=== PATIENT | female | born 1995 | race Caucasian/White ===

== ENCOUNTER 2017-02-14 13:11 | Emergency (ER) | payer BC, OTHER ==
[2017-02-14 13:43] LABS: Urine Bilirubin 1 mg/dl (NEGATIVE); Urine Blood 250 /ul (NEGATIVE); Urine Ketone Negative (NEGATIVE); Urine Nitrite Negative (NEGATIVE); Urine Protein 15 mg/dL (NEGATIVE); Urine Urobilinogen Normal (NORMAL); Urine pH 6.5 pH (5.0-7.0)
[2017-02-14 13:52] LABS: Urine Appearance Slightly Cloudy; Urine Bacteria 3+; Urine Color Yellow; Urine RBC 0-5 /hpf (0-5)
--- NOTE | 2017-02-14 13:52 | ERNOTE ---
ER Female HPI Stated Complaint: LOWER ABD TO BACK PAIN Time Seen by Provider: 02/14/17 13:26 Source: patient Exam Limitations: no limitations Immunizations: IMMUNIZATION HX Immunizations Up to Date Yes History of Influenza Vaccine No Hx Pneumococcal Vaccination More Information Required Allergies/Adverse Reactions: Allergies No Known Allergies Allergy (Verified 02/14/17 13:21) Home Medications: HOME MEDICATIONS Cetirizine HCl [Zyrtec] 10 mg PO DAILY 07/08/16 [Last Taken 08/01/16] Vit#96/Ferrous Fum/FA [ S] 1 tab PO DAILY 07/08/16 [Last Taken 08/02/16] ALPRAZolam [Xanax] 0.5 mg PO BID PRN 02/14/17 [Last Taken Unknown] Ibuprofen [Motrin] 600 mg PO TID PRN #21 tablet 02/14/17 [Last Taken Unknown] Sulfamethoxazole/Trimethoprim [Bactrim Ds] 1 tab PO BID #14 tablet 02/14/17 [ Last Taken Unknown] Zinc 50 mg PO DAILY 02/14/17 [Last Taken Unknown] - History of Present Illness Narrative: Patient presents to the emergency room for lower abdominal pain for 3 days denies any nausea or vomiting she states that she is not having pain right now. But she has had it yesterday and today before intermittently denies any nausea or vomiting states she cannot be because she is on control pills. Denies any trauma. - Patient's Past Medical History Patient History - Medical: Anxiety, Depression, Seizures Patient History - Cardiac/Respiratory: No pertinent hx Patient History - Cancer: No Hx of Cancer Patient History - Surgical Procedures: No surgical history - Social History Smoking Status: Current every day smoker Have you smoked in the past 12 months: Yes - Immunizations Immunizations Up to Date: Yes Hx Pneumococcal Vaccination: More Information Required to Determine History of Influenza Vaccine: No Physical Exam - Physical Exam General Appearance: Present: wd/wn, alert, no apparent distress Respiratory: Present: no respiratory distress, normal breath sounds, no accessory muscle use, chest nontender, lungs clear Cardiovascular/Chest: Present: regular rate, rhythm, no murmur, normal peripheral pulses Gastrointestinal/Abdominal: Present: normal bowel sounds, nontender, nondistended, soft, no organomegaly - this is a completely benign abdominal exam. Deep palpation patient is slightly tender in the suprapubic region but no rebound and completely benign abdominal exam. ED Progress - Results and Orders Patient's Lab Results:: I have reviewed the patient's lab results. - patient's urine results are positive for benzodiazepines and opiates and marijuana. - Vital Signs Patient's Vital Signs:: I have reviewed the patient's vital signs. Vital Signs: Vital Signs 02/14/17 13:18 Temperature 36.7 C Pulse Rate 98 Respiratory 12 Rate Blood Pressure 123/81 O2 Sat by Pulse 95 Oximetry - Progress/Reassessment Chief Complaint: Genitourinary Problem Plan - Plan Plan: Leave this patient has a urinary tract infection and will be treated appropriately. Departure Clinical Impression: Urinary tract infection Qualifiers: Urinary tract infection type: site unspecified Hematuria presence: with hematuria Qualified Code(s): N39.0 - Urinary tract infection, site not specified ; R31.9 - Hematuria, unspecified - Departure Disposition: Home self-care Condition: Good Instructions: Urinary Tract Infection, Adult, [id number] Prescriptions: Ibuprofen [Motrin] 600 mg PO TID PRN #21 tablet PRN Reason: Pain Sulfamethoxazole/Trimethoprim [Bactrim Ds] 1 tab PO BID #14 tablet
[2017-02-14 14:03] LABS: Cocaine Ur Negative (NEGATIVE); Urine Barbiturate Negative (NEGATIVE); Urine PCP Negative (NEGATIVE)
[2017-02-14 14:05] LABS: Urine Benzodiazepines Positive (NEGATIVE); Urine Opiates Positive (NEGATIVE); Urine THC Positive (NEGATIVE)
[2017-02-14 14:22] VITALS: BP 128/89
== END 2017-02-14 14:24 | disposition home or self-care (01) ==
LOC: ER 13:11
DX: N39.0 Urinary tract infection, site not specified (principal); R31.9 Hematuria, unspecified